=== PATIENT | female | born 1985 | race Caucasian/White ===

== ENCOUNTER 2017-02-18 11:37 | Emergency (ER) | payer OTHER ==
[~2017-02-18] VITALS: Ht 154.9 cm; Wt 89.0 kg
[2017-02-18 11:51] VITALS: BP 121/88
== END 2017-02-18 13:03 | disposition home or self-care (01) ==
LOC: ED 12:52
DX: J32.0 Chronic maxillary sinusitis (principal)
CPT/HCPCS: 71020; 99284